=== PATIENT | female | born 1945 | race Caucasian/White ===

== ENCOUNTER 2022-01-11 07:55 | Observation (INO) ==
[2022-01-11] MEDS ORDERED: DilTIAZem CD (24hr) 240 MG CAP.ER.24H PO STA (08:09)
[2022-01-11] MEDS ORDERED: 0.9 % Sodium Chloride 500 ML IVC ONE (08:10)
[2022-01-11 08:40] LABS: Basophils % 0.3 %; Eosinophils # 0.1 K/mcL (0.0-0.6); Eosinophils % 1.3 %; Hematocrit 31.2 % (35.3-44.9); Hemoglobin 9.7 g/dL (11.5-15.4); Immature Granulocytes % 0.7 % (0-4); Lymphocytes # 0.7 K/mcL (0.6-4.6); Lymphocytes % 6.9 %; Mean Corpuscular HGB Conc 31.1 g/dL (31.6-35.5); Mean Corpuscular Hemoglobin 27.9 pg (28.0-33.3); Mean Corpuscular Volume 89.7 fL (83.0-100.0); Monocytes # 0.5 K/mcL (0.0-1.3); Platelet Count 170 K/mcL (140-400); Red Blood Count 3.48 M/mcL (3.82-4.97); Red Cell Distribution Width 14.7 % (11.5-14.5); Segmented Neutrophils % 85.8 %; White Blood Count 9.4 K/mcL (4.3-11.1)
[2022-01-11 08:48] LABS: INR 1.1; Prothrombin Time 12.4 Seconds (9.4-12.1)
[2022-01-11 08:50] LABS: Activated Partial Thrombo Time 26.4 Seconds (26.0-36.0)
[2022-01-11 09:03] LABS: BUN/Creatinine Ratio 40 (6-26); Blood Urea Nitrogen 42 mg/dL (8-23); Calcium 8.8 mg/dL (8.6-10.3); Carbon Dioxide 26 mEq/L (23-29); Chloride 104 mEq/L (98-107); Glucose 218 mg/dL (70-105); Magnesium 1.8 mg/dL (1.6-2.6); Osmolality,Calculated 307 (280-300); Potassium 4.5 mEq/L (3.5-5.1); Sodium 140 mEq/L (136-145); Troponin I < 0.03 ng/mL (< 0.04); eGFR For African Americans > 60 (> 60); eGFR For Non-African Americans 51 (> 60)
[2022-01-11 09:14] LABS: Thyroid Stimulating Hormone 4.758 mcIU/mL (0.340-5.600)
[2022-01-11] MEDS ORDERED: 0.9 % Sodium Chloride 1,000 ML IVC ONE (10:08)
[2022-01-11] MEDS ORDERED: DilTIAZem 50 MG/50 ML IV.SOLN IVC SCH (10:15)
[2022-01-11 10:26] LABS: Bacteria,Urine Few per hpf (None-Few); Bilirubin,Urine Negative (Negative); Blood,Urine Small (Negative); Clarity,Urine Turbid (Clear); Color,Urine Light-Yellow (Yellow); Glucose,Urine (UA) Normal (Normal); Ketones,Urine Negative (Negative); Leukocyte Esterase,Urine Large (Negative); Mucus,Urine Few per lpf (None-Few); Nitrite,Urine Positive (Negative); PH,Urine 5.5 pH Units (5.0-8.0); Protein,Urine Trace mg/dL (Neg-Trace); Specific Gravity,Urine 1.014 (1.010-1.025); Squamous Epithelial Cell,Urine Moderate per hpf (None-Few); Urobilinogen,Urine Normal (Normal); WBC,Urine 15-30 per hpf (0-3)
[2022-01-11 11:03] LABS: Influenza A PCR Negative (Negative); Influenza B PCR Negative (Negative); Resp. Syncytial Virus PCR Negative (Negative)
[2022-01-11] MEDS ORDERED: cefTRIAXone 1,000 MG in 0.9 % Sodium Chloride Mini Bag 100 ML IVPB ONE (11:07)
[2022-01-11] MEDS ORDERED: Naloxone 0.4 MG/ML INJ IVP PRN (11:08)
[2022-01-11] MEDS ORDERED: 0.9 % Sodium Chloride 1,000 ML IVC SCH (11:15)
[2022-01-11 11:30] LABS: SARS-CoV-2 by PCR (In House) Negative (Negative)
[2022-01-11] MEDS ORDERED: Amiodarone 450 MG in 0.9 % Sodium Chloride Excel Bg 241 ML IVC SCH (12:45)
[2022-01-11] MEDS ORDERED: Acetaminophen 325 MG TABLET PO PRN (12:46)
[2022-01-11] MEDS ORDERED: Dextrose Gel 15 GM/37.5 ML TUBE PO PRN ×2 (12:49)
[2022-01-11] MEDS ORDERED: *HR* Dextrose 50 % in Water (Syg) 50 ML SYRINGE IVP PRN (12:49)
[2022-01-11] MEDS ORDERED: D5% in Water 1,000 ML IVC PRN (12:49)
[2022-01-11] MEDS ORDERED: Amiodarone Premix 150 MG/100 ML BAG IVPB ONE (13:02)
[2022-01-11 13:26] LABS: Estimated Average Glucose 163 mg/dl; Hemoglobin A1C 7.3 %
[2022-01-11] MEDS ORDERED: Ipratropium/Albuterol Neb 3 ML IH PRN (13:51)
[2022-01-11] MEDS: 0.9 % Sodium Chloride 1,000 ML IVC SCH (19:04)
[2022-01-11] MEDS: Insulin LISPRO 300 UNITS/3 ML VIAL SUBQ SCH (19:04)
[2022-01-11] MEDS: Gabapentin 100 MG CAPSULE PO SCH ×2 (19:04→21:28)
[2022-01-11] MEDS: Metoprolol XL (24 HR) Succ 25 MG TAB.ER.24H PO SCH (21:28)
[2022-01-11] MEDS ORDERED: Baclofen 10 MG TABLET PO PRN (22:20)
[2022-01-12] MEDS: Ipratropium/Albuterol Neb 3 ML IH SCH ×3 (00:12→20:36)
[2022-01-12] MEDS: Budesonide/Formoterol 80/4.5 1 PUFF INH IH SCH ×3 (00:12→20:36)
[2022-01-12 01:36] LABS: Basophils % 0.2 %; Eosinophils # 0.2 K/mcL (0.0-0.6); Eosinophils % 1.8 %; Hematocrit 27.5 % (35.3-44.9); Hemoglobin 8.7 g/dL (11.5-15.4); Immature Granulocytes % 1.1 % (0-4); Lymphocytes # 0.8 K/mcL (0.6-4.6); Lymphocytes % 10.3 %; Mean Corpuscular HGB Conc 31.6 g/dL (31.6-35.5); Mean Corpuscular Hemoglobin 28.4 pg (28.0-33.3); Mean Corpuscular Volume 89.9 fL (83.0-100.0); Mean Platelet Volume 11.1 fL (9.4-12.4); Monocytes # 0.4 K/mcL (0.0-1.3); Monocytes % 4.6 %; Neutrophils # 6.7 K/mcL (1.6-8.9); Platelet Count 162 K/mcL (140-400); Red Blood Count 3.06 M/mcL (3.82-4.97); Red Cell Distribution Width 14.7 % (11.5-14.5); White Blood Count 8.1 K/mcL (4.3-11.1)
[2022-01-12 02:01] LABS: BUN/Creatinine Ratio 31 (6-26); Blood Urea Nitrogen 33 mg/dL (8-23); Calcium 8.1 mg/dL (8.6-10.3); Carbon Dioxide 21 mEq/L (23-29); Chloride 111 mEq/L (98-107); Glucose 234 mg/dL (70-105); Iron 20 mcg/dL (50-170); Magnesium 1.7 mg/dL (1.6-2.6); Osmolality,Calculated 303 (280-300); Phosphorous 3.1 mg/dL (2.7-4.5); Potassium 4.3 mEq/L (3.5-5.1); Sodium 139 mEq/L (136-145); eGFR For African Americans > 60 (> 60); eGFR For Non-African Americans 51 (> 60)
[2022-01-12 02:16] LABS: Ferritin 332 ng/mL (10-120)
[2022-01-12 02:22] LABS: Folate 11.6 ng/mL (3.0-16.0)
[2022-01-12 02:50] LABS: Vitamin B12 > 1500 pg/mL (250-1100)
[2022-01-12 08:45] LABS: % Iron Saturation 9 % (15-50); Transferrin 156 mg/dL (203-362)
[2022-01-12] MEDS: polyethylene glycoL 3350 17 GM POWD.PACK PO SCH (09:28)
[2022-01-12] MEDS: 0.9 % Sodium Chloride 1,000 ML IVC SCH ×4 (09:28→20:41)
[2022-01-12] MEDS: Metoprolol XL (24 HR) Succ 25 MG TAB.ER.24H PO SCH (09:28)
[2022-01-12] MEDS: Gabapentin 100 MG CAPSULE PO SCH ×3 (09:28→19:58)
[2022-01-12] MEDS: cefTRIAXone 1,000 MG in Water for inj. (sterile) 10 ML IVP SCH (09:29)
[2022-01-12] MEDS: Insulin LISPRO 300 UNITS/3 ML VIAL SUBQ SCH ×3 (09:30→18:16)
[2022-01-12] MEDS ORDERED: Ondansetron 4 MG/2 ML VIAL ONE (10:01)
[2022-01-12] MEDS ORDERED: Isovue-370 500 ML BOTTLE IVP ONE (10:09)
[2022-01-12] MEDS: Ondansetron 4 MG/2 ML VIAL IVP PRN (10:15)
[2022-01-12 10:53] LABS: Alanine Aminotransferase 9 Units/L (7-52); Albumin 2.8 g/dL (3.5-5.7); Alkaline Phosphatase 65 Units/L (34-104); Aspartate Amino Transferase 11 Units/L (13-39); Bilirubin,Indirect 0.2 mg/dL (0.0-1.0); Bilirubin,Total 0.2 mg/dL (0.3-1.0); Globulin 2.8 g/dL (2.4-3.5); Total Protein 5.6 g/dL (6.4-8.9)
[2022-01-12] MEDS ORDERED: *HR* Digoxin 0.5 MG/2 ML AMPUL IVP ONE (11:19)
[2022-01-12] MEDS ORDERED: Ondansetron 4 MG/2 ML VIAL IVP SCH (12:00)
[2022-01-12] MEDS: DilTIAZem 50 MG/50 ML IV.SOLN IVC SCH ×2 (12:00→20:37)
[2022-01-12] MEDS: *HR* Metoprolol 5 MG/5 ML VIAL IVP SCH ×2 (12:08→18:15)
[2022-01-12] MEDS: Baclofen 10 MG TABLET PO SCH (19:58)
[2022-01-12] MEDS ORDERED: traZODone 50 MG TABLET PO SCH (21:00)
[2022-01-13] MEDS: *HR* Metoprolol 5 MG/5 ML VIAL IVP SCH ×2 (01:28→06:31)
[2022-01-13] MEDS: DilTIAZem 50 MG/50 ML IV.SOLN IVC SCH (04:41)
[2022-01-13] MEDS: 0.9 % Sodium Chloride 1,000 ML IVC SCH ×4 (04:41→22:23)
[2022-01-13] MEDS: Ipratropium/Albuterol Neb 3 ML IH SCH ×2 (07:24→19:39)
[2022-01-13] MEDS: Budesonide/Formoterol 80/4.5 1 PUFF INH IH SCH ×2 (07:24→19:39)
[2022-01-13] MEDS: polyethylene glycoL 3350 17 GM POWD.PACK PO SCH (08:00)
[2022-01-13] MEDS: Baclofen 10 MG TABLET PO SCH ×2 (08:00→20:33)
[2022-01-13] MEDS: Gabapentin 100 MG CAPSULE PO SCH ×3 (08:00→20:34)
[2022-01-13] MEDS: *HR* Digoxin 0.125 MG TABLET PO SCH (08:00)
[2022-01-13] MEDS: cefTRIAXone 1,000 MG in Water for inj. (sterile) 10 ML IVP SCH (08:01)
[2022-01-13] MEDS: Insulin LISPRO 300 UNITS/3 ML VIAL SUBQ SCH ×3 (08:24→17:05)
[2022-01-13 09:59] LABS: Basophils % 0.3 %; Eosinophils # 0.1 K/mcL (0.0-0.6); Eosinophils % 1.6 %; Hematocrit 27.2 % (35.3-44.9); Hemoglobin 8.1 g/dL (11.5-15.4); Immature Granulocytes % 0.7 % (0-4); Lymphocytes # 0.6 K/mcL (0.6-4.6); Lymphocytes % 8.5 %; Mean Corpuscular HGB Conc 29.8 g/dL (31.6-35.5); Mean Corpuscular Hemoglobin 27.4 pg (28.0-33.3); Mean Corpuscular Volume 91.9 fL (83.0-100.0); Mean Platelet Volume 10.7 fL (9.4-12.4); Monocytes # 0.3 K/mcL (0.0-1.3); Monocytes % 4.3 %; Neutrophils # 5.8 K/mcL (1.6-8.9); Platelet Count 147 K/mcL (140-400); Red Blood Count 2.96 M/mcL (3.82-4.97); Red Cell Distribution Width 14.6 % (11.5-14.5); Segmented Neutrophils % 84.6 %; White Blood Count 6.8 K/mcL (4.3-11.1)
[2022-01-13 10:18] LABS: BUN/Creatinine Ratio 23 (6-26); Blood Urea Nitrogen 24 mg/dL (8-23); Calcium 8.3 mg/dL (8.6-10.3); Carbon Dioxide 22 mEq/L (23-29); Chloride 111 mEq/L (98-107); Glucose 230 mg/dL (70-105); Osmolality,Calculated 299 (280-300); Potassium 4.5 mEq/L (3.5-5.1); Sodium 139 mEq/L (136-145); eGFR For African Americans > 60 (> 60); eGFR For Non-African Americans 52 (> 60)
[2022-01-13] MEDS: Ertapenem 1,000 MG in 0.9 % Sodium Chloride Mini Bag 100 ML IVPB SCH (10:35)
[2022-01-13] MEDS: MOM Conc 10 ML UD.LIQ PO SCH (10:36)
[2022-01-13] MEDS ORDERED: MOM Conc 10 ML UD.LIQ PO PRN (20:02)
[2022-01-13] MEDS ORDERED: Melatonin 3 MG TABLET PO SCH (21:00)
[2022-01-14 02:52] VITALS: PULSE 61
[2022-01-14 06:34] VITALS: BP 150/41; TEMP 97.9
[2022-01-14] MEDS: Ipratropium/Albuterol Neb 3 ML IH SCH (07:43)
[2022-01-14] MEDS: Budesonide/Formoterol 80/4.5 1 PUFF INH IH SCH (07:44)
[2022-01-14 07:45] VITALS: O2SAT 100
[2022-01-14] MEDS: polyethylene glycoL 3350 17 GM POWD.PACK PO SCH (08:03)
[2022-01-14] MEDS: Ertapenem 1,000 MG in 0.9 % Sodium Chloride Mini Bag 100 ML IVPB SCH (08:05)
[2022-01-14] MEDS: MOM Conc 10 ML UD.LIQ PO SCH (08:05)
[2022-01-14] MEDS: Gabapentin 100 MG CAPSULE PO SCH (08:06)
[2022-01-14] MEDS: Baclofen 10 MG TABLET PO SCH (08:06)
[2022-01-14] MEDS: *HR* Digoxin 0.125 MG TABLET PO SCH (08:07)
[2022-01-14] MEDS: Insulin LISPRO 300 UNITS/3 ML VIAL SUBQ SCH ×2 (08:11→10:52)
[2022-01-14] MEDS: Ondansetron 4 MG/2 ML VIAL IVP PRN (09:42)
[2022-01-14] MEDS ORDERED: 0.9 % Sodium Chloride 1,000 ML ONE (10:16)
[2022-01-14] MEDS ORDERED: Metoclopramide 10 MG/2 ML VIAL IVP ONE ×2 (10:39→10:46)
[2022-01-14 13:24] LABS: Adenovirus Not Detected (Not Detect); Coronavirus 229E Not Detected (Not Detect); Coronavirus HKU1 Not Detected (Not Detect); Coronavirus NL63 Not Detected (Not Detect); Coronavirus OC43 Not Detected (Not Detect); Human Metapneumovirus Not Detected (Not Detect); Human Rhinovirus/Enterovirus Not Detected (Not Detect); SARS-CoV-2 Not Detected (Not Detect)
[2022-01-14 13:25] LABS: Bordetella Pertussis Not Detected (Not Detect); Chlamydophila pneumoniae Not Detected (Not Detect); Influenza A Subtype 2009 H1 Not Detected (Not Detect); Influenza B Not Detected (Not Detect); Mycoplasma pneumoniae Not Detected (Not Detect); Parainfluenza Virus 1 Not Detected (Not Detect); Parainfluenza Virus 2 Not Detected (Not Detect); Parainfluenza Virus 3 Not Detected (Not Detect); Parainfluenza Virus 4 Not Detected (Not Detect); Respiratory Syncytial Virus Not Detected (Not Detect)
== END 2022-01-14 13:25 ==
LOC: EMEROOARM 07:55 → 2NENU 07:55
PROVIDERS: ADMIT Student in an Organized Health Care Education/Training Program; ATTEND Student in an Organized Health Care Education/Training Program